=== PATIENT | male | born 1935 | race Caucasian/White ===

== ENCOUNTER → 2016-06-01 | Outpatient (CLI) | payer MEDICARE, BC ==
[~2016-06-01] MED LIST: ALTACE 2.5MG T2.5 MG PO; ALTACE5 MG PO; ASPIRIN 32325 MG/TAB PO; ERYTHROMYCIN; LOVASTATIN20 MG PO; REMERON 15M15 MG/TA1 PO; TRIAZOLAM0.25 MG PO
== END ==
LOC: COL.RAD 08:39
DX: G31.89 Other specified degenerative diseases of nervous system (principal); I67.82 Cerebral ischemia; R41.3 Other amnesia
CPT/HCPCS: Q9967

== ENCOUNTER → 2017-02-26 | Outpatient (CLI) | payer MEDICARE, BC | LOC: COL.RAD 14:22 | DX: K44.9 Diaphragmatic hernia without obstruction or gangrene (principal) ==

== ENCOUNTER 2018-12-12 16:16 | Inpatient (IN) | payer MEDICARE, BC ==
[~2018-12-12] VITALS: Ht 177.8 cm; Wt 75.5 kg
[2018-12-12 16:59] LABS: ARTERIAL BLD GAS O2 SATURATION 92.6 % (92-100); ARTERIAL BLD GAS TCO2 CT 27.5; ARTERIAL BLOOD GAS BASE EXCESS 2.5 (-2-2); ARTERIAL BLOOD GAS HCO3 26.4 meq/L (22-26); ARTERIAL BLOOD GAS PO2 64.3 mmHg (80-100); ARTERIAL BLOOD GAS pH 7.46 (7.35-7.45)
[2018-12-12] MEDS ORDERED: ASPIRIN 81M81 MG/TA2 PO (17:08)
[2018-12-12] MEDS ORDERED: FLOMAX 0.40.4 MG/CAP PO (17:09)
[2018-12-12] MEDS ORDERED: LIPITOR 40MG TA40 MG PO (17:09)
[2018-12-12] MEDS ORDERED: NAMZARIC1 ECC PO (17:10)
[2018-12-12] MEDS ORDERED: NAMENDA XR 28MG PO ×2 (17:10→21:38)
[2018-12-12] MEDS ORDERED: ZOLOFT 25MG25 MG PO (17:11)
[2018-12-12] MEDS ORDERED: ALTACE 2.5MG T2.5 MG PO (17:11)
[2018-12-12] MEDS ORDERED: ASPERCREME1 EACH TP ×2 (17:12→21:40)
[2018-12-12 17:17] LABS: BASO # 0.1 (0.0-0.2); BASO % 0.3 % (0.0-2.0); GRAN # 28.7 (1.4-6.5); GRAN % 90.3 % (42.2-75.2); LYMPH # 1.4 (1.2-3.4); LYMPH % 4.2 % (20.0-51.0); MEAN CELL VOLUME 98 fl (80.0-100.0); MEAN CORPUSCULAR HEMOGLOBIN 31 pg (27.0-31.0); MEAN CORPUSCULAR HGB CONC 32 g/dl (33.0-37.0); MEAN PLATELET VOLUME 11.1 fl (7.4-10.4); MONO # 1.4 (0.1-0.6); MONO % 4.3 % (1.7-9.3); PLATELET COUNT 375 K/mm3 (130-400); RED BLOOD COUNT 3.22 M/mm3 (4.20-5.60)
[2018-12-12 17:24] LABS: HEMATOCRIT 31.4 % (42.0-52.0)
[2018-12-12 17:28] LABS: ALBUMIN 3.9 gm/dL (3.5-5.0); BILIRUBIN,TOTAL 0.9 mg/dL (0.0-1.0); CALCIUM 8.9 mg/dL (8.4-10.2); CREATININE, serum 1.18 (0.66-1.25); POTASSIUM 4.2 mmol/L (3.4-5.0); TOTAL PROTEIN 7.5 gm/dL (6.4-8.2)
[2018-12-12 18:03] LABS: COLLECTION METHOD CLEAN CATCH
[2018-12-12 18:29] LABS: MUCOUS Present /lpf; PH 5 (5-8); SQUAMOUS EPITHELIAL 0-2 /hpf; URINE APPEARANCE Clear; URINE BACTERIA Rare /hpf; URINE BILIRUBIN Negative (NEGATIVE); URINE BLOOD 3+ (NEGATIVE); URINE COLOR Yellow; URINE GLUCOSE Negative (NEGATIVE); URINE KETONE Negative (NEGATIVE); URINE LEUKOCYTE ESTERASE 1+ (NEGATIVE); URINE NITRATE Positive (NEGATIVE); URINE PROTEIN(semi-quant) 1+ (NEGATIVE); URINE RBC >50 /hpf
[2018-12-12 20:26] VITALS: BP 143/57; PULSE 93; TEMP 101.1
--- NOTE | 2018-12-12 21:00 | NUR ---
PT HAS INCISION TO RIGHT HIP THAT IS CLEAN, DRY, AND INTACT, WITH NO S/S OF INFECTION, NO WARMTH, REDNESS, OR PAIN.
[2018-12-12] MEDS ORDERED: ANTIVERT 25MG25 MG PO (21:05)
--- NOTE | 2018-12-12 21:22 | NUR ---
PT ARRIVED FROM [place] AND SON AT SIDE. DID 5 PAGE WITH SON. SON ADVISED THAT FATHER HAD HIP REPLACEMENT ON November, WHEN AT REHAB AT [place], THEY DID PERIOTIC BLOOD TEST AND HIS WBC WAS ELEVATED AND THEN IT DROPPED DOWN. PT CURRENTLY IN [facility] FOR REHAB, BUT LIVES AT HOME WITH . PT HAS SHORT TERM MEMORY PROBLEMS, DEMENTIA. PT USES WALKER TO WALK AND HAS BEEN USING A WHEELCHAIR. NO C/O PAIN OR DISCOMFORT, CALL LIGHT WITHIN REACH. SON DAYANA ADVISED THAT TO CALL HIM FIRST AND SISTER SECOND, BUT SHE LIVES HERE. SO DAYANA LIVES IN [place], WILL RETURN TO ON 12/13/18. CALL LIGHT WITHIN REACH.
[2018-12-12 21:27] LABS: INR 1.2 (0.8-3.0); PROTHROMBIN TIME 13.7 SECONDS (9.7-12.8)
[2018-12-12] MEDS ORDERED: TYLENOL SU650 MG/SUP RC (21:42)
[2018-12-12] MEDS ORDERED: GENTLE LAXATIVE10 MG RC (21:42)
[2018-12-12] MEDS ORDERED: MILK OF MA400 MG/52 PO (21:43)
[2018-12-12] MEDS ORDERED: MIRALAX PA17 GM/Dose PO (21:43)
[2018-12-12] MEDS ORDERED: IMODIUM 2MG CAPS2 MG PO (21:43)
[2018-12-12] MEDS ORDERED: MYLANTA 150 ML150 M1 PO (21:44)
[2018-12-12] MEDS ORDERED: ULTRAM 50MG TAB50 MG PO (21:45)
[2018-12-12] MEDS ORDERED: TYLENOL 325MG325 MG PO (21:45)
[2018-12-12 21:58] LABS: SALICYLATE < 1.0 mg/dL; TROPONIN-I < 0.012 ng/mL (0.000-0.035)
[2018-12-12 23:26] VITALS: BP 125/46; PULSE 81; TEMP 98.9
[2018-12-12 23:27] VITALS: BP 125/46; PULSE 81; TEMP 98.9
[2018-12-13 03:48] VITALS: BP 133/45; PULSE 90; TEMP 98.6
--- NOTE | 2018-12-13 06:01 | NUR ---
PT IN BED WITH HOB AT 15 DEGREE ANGLE, AND PT WEARING CPAP. PT HAS BEEN INCONTINENT OF URINE AND HAS BEEN CHANGED A COUPLE OF TIMES. PT A/O TO SELF. PT IS PLEASANT AND COOPERATIVE. PT DENIES PAIN OR DISCOMFORT. PT NOT ABLE TO MOVE LEFT LEG, BUT PT DID HAVE HIP SURGERY THAT HE IS RECOVERING FROM AND STILL HAS A DRSG OVER LEFT HIP SITE THAT IS C/D/I, AND THERE IS NO S/S OF INFECTION NOTED. PT DID EAT A SNACK BEFORE CPAP PLACED ON HIM. PT REQUESTED STRAWBERRY ICE CREAM. PT RESTING WELL AND DOES EASILY AWAKEN AND GOES BACK TO SLEEP. CALL LIGHT IN REACH AND BED ALARM ON. PT WAS MOVED TO ROOM 313 TO KEEP HIM CLOSE TO NURSES STATION.
[2018-12-13 08:27] VITALS: BP 126/54; PULSE 79; TEMP 98
[2018-12-13 09:13] LABS: MEAN CELL VOLUME 98 fl (80.0-100.0); MEAN CORPUSCULAR HGB CONC 32 g/dl (33.0-37.0); MEAN PLATELET VOLUME 10.6 fl (7.4-10.4); REDCELL DISTRIBUTION WIDTH-CV 13.1 % (11.5-14.5)
[2018-12-13 09:23] LABS: BILIRUBIN,TOTAL 0.7 mg/dL (0.0-1.0); CALCIUM 7.9 mg/dL (8.4-10.2); CREATININE, serum 0.84 (0.66-1.25); TOTAL PROTEIN 6.3 gm/dL (6.4-8.2)
[2018-12-13 09:30] LABS: HEMATOCRIT 26.4 % (42.0-52.0); HEMOGLOBIN 8.4 g/dl (13.5-18.0); MEAN CORPUSCULAR HEMOGLOBIN 31 pg (27.0-31.0); PLATELET COUNT 275 K/mm3 (130-400)
[2018-12-13 10:04] LABS: ANISOCYTOSIS 1+; BAND 4 % (0-10); HYPOCHROMIA 2+; LYMPHOCYTE 6 % (20.0-51.0); NEUTROPHILS 87 % (42.0-75.2); PLATELET ESTIMATE NORMAL (NORMAL); TOXIC GRANULATION PRESENT
--- NOTE | 2018-12-13 10:17 | NUR ---
Pt napping upon entry, easily awakened, no C/O pain at this time, shift assessments complete, left Pt call light in reach, bed in lowesyt position.
[2018-12-13 12:17] VITALS: BP 127/57; PULSE 66; TEMP 97.9
[2018-12-13 16:00] VITALS: BP 131/57; PULSE 81; TEMP 98.4
--- NOTE | 2018-12-13 19:07 | NUR ---
Pt has been resting in his room, spent several hours in the recliner today, has been up and using the bedside commode with assistance with some incontinence, VS have remained stable.
--- NOTE | 2018-12-13 19:18 | NUR ---
Patient assisted to bedside commode x2 assist and assisted to bed. Assessment complete. Lungs clear. Murmur heard with auscultation of heart sounds. Bowels active x4. Pulses strong throughout. No edema noted. Denies pain at this time. Incontinent of urine and bowel. Cares provided. Denies other needs. NS at 150ml/hr infusing into right forearm without complications. Left AC INT without complications. Patient alert but confused on plac, time, and situation. Orientated patient. Bed alarm in place.
--- NOTE | 2018-12-13 19:23 | NUR ---
Gave report to MORGAN Cope.
[2018-12-13 20:02] VITALS: BP 154/62; PULSE 91; PULSE 94; TEMP 100
--- NOTE | 2018-12-13 23:36 | NUR ---
Resting in bed, watching TV. Denies needs. Call light in reach.
[2018-12-14 00:43] VITALS: BP 124/63; PULSE 76; TEMP 99.1
[2018-12-14 05:09] VITALS: BP 144/64; PULSE 77; TEMP 98.8
--- NOTE | 2018-12-14 05:49 | NUR ---
Patient confused at beginning of night. Incontinent throughout night. Cares provided each time. Otherwise uneventful night. Resting in bed this AM watching television.
[2018-12-14 06:20] LABS: BASO % 0.3 % (0.0-2.0); EOS # 0.1 (0.0-0.7); EOS % 0.8 % (0-4.0); GRAN # 9.8 (1.4-6.5); HEMOGLOBIN 10.3 g/dl (13.5-18.0); LYMPH # 0.8 (1.2-3.4); MEAN CELL VOLUME 97 fl (80.0-100.0); MEAN CORPUSCULAR HEMOGLOBIN 31 pg (27.0-31.0); MEAN CORPUSCULAR HGB CONC 32 g/dl (33.0-37.0); MONO # 0.6 (0.1-0.6); MONO % 5.5 % (1.7-9.3); PLATELET COUNT 200 K/mm3 (130-400); RED BLOOD COUNT 3.32 M/mm3 (4.20-5.60); REDCELL DISTRIBUTION WIDTH-CV 13.1 % (11.5-14.5)
[2018-12-14 06:22] LABS: HEMATOCRIT 32.3 % (42.0-52.0)
[2018-12-14 06:34] LABS: ALBUMIN 2.9 gm/dL (3.5-5.0); BILIRUBIN,TOTAL 0.6 mg/dL (0.0-1.0); CALCIUM 8.2 mg/dL (8.4-10.2); CREATININE, serum 0.78 (0.66-1.25); POTASSIUM 3.9 mmol/L (3.4-5.0); TOTAL PROTEIN 6.1 gm/dL (6.4-8.2)
--- NOTE | 2018-12-14 06:36 | NUR ---
Report given to MORGAN Colvin
[2018-12-14 08:30] VITALS: BP 145/63; PULSE 66; TEMP 98.9
--- NOTE | 2018-12-14 08:36 | NUR ---
Pt napping upon entry, easily awakened, no C/O pain at this time, audible wheezing noted, shift assessments complete, left Pt call light in reach, bed in lowest position.
--- NOTE | 2018-12-14 09:14 | NUR ---
Pt napping upon entry, easily awakened, no C/O pain at this time, shift assessments complete, left Pt call light in reach, bed in lowest position, bed alarm on.
[2018-12-14 11:34] VITALS: BP 118/62; PULSE 94; TEMP 98.6
[2018-12-14] MEDS ORDERED: OMNICEF 300MG300 MG PO (12:43)
--- NOTE | 2018-12-14 13:34 | NUR ---
Plan: Plans to return to [facility] for SNF. Assess: SW met with patient in room, , and DTR Lanette Haque . Patient reports DPOA is Ketty , Daughter Lanette,a nd Son .Patient indicated that they recieve medications from [facility], pcp is Dr. Nunez. Patient reports that use of walker 17/12. Patient indicated that his family is his care support at home. Action: SW facilitated transfer to [facility]. Transport set at 02:30 pm. Faxed DC to [facility]. Nothing follows.
[2018-12-14 13:52] VITALS: BP 118/62; PULSE 94; TEMP 98.6
--- NOTE | 2018-12-14 15:00 | NUR ---
Pt picked up by [facility].
== END 2018-12-14 15:00 | DRG 872 ==
LOC: COL.ER 16:16 → MEDICAL 18:26
PROVIDERS: Family Medicine; Nurse Practitioner Family; ADMIT Student in an Organized Health Care Education/Training Program
DX: A41.9 Sepsis, unspecified organism (principal); E87.2 Acidosis; D68.51 Activated protein C resistance; N39.0 Urinary tract infection, site not specified; R65.20 Severe sepsis without septic shock; E78.5 Hyperlipidemia, unspecified; F03.90 Unspecified dementia, unspecified severity, without behavioral disturbance, psychotic disturbance, mood disturbance, and anxiety; G47.33 Obstructive sleep apnea (adult) (pediatric); I10 Essential (primary) hypertension; N40.0 Benign prostatic hyperplasia without lower urinary tract symptoms; R09.02 Hypoxemia; Z96.642 Presence of left artificial hip joint; Z86.73 Personal history of transient ischemic attack (TIA), and cerebral infarction without residual deficits; Z79.82 Long term (current) use of aspirin
CPT/HCPCS: 99222-AI; 99239; A4216; J0692; J1650; J7030

== ENCOUNTER 2021-06-04 15:52 | Inpatient (IN) | payer MEDICARE, BC ==
[~2021-06-04] VITALS: Ht 177.8 cm; Wt 78.3 kg
[~2021-06-04 15:52] MED LIST changes: +ANTIVERT 25MG25 MG PO; +ASPERCREME1 EACH TP; +ASPIRIN 81M81 MG/TA2 PO; +CHILDREN'S5 MG/5 M3 PO; +CLARITIN LIQUI-10 MG PO; +FLOMAX 0.40.4 MG/CAP PO; +GENTLE LAXATIVE10 MG RC; +IMODIUM 2MG CAPS2 MG PO; +LIPITOR 40MG TA40 MG PO; +MILK OF MA400 MG/52 PO; +MIRALAX PA17 GM/Dose PO; +MYLANTA 150 ML150 M1 PO; +NAMENDA XR 28MG PO; +NAMZARIC1 ECC PO; +OMNICEF 300MG300 MG PO; +TYLENOL 325MG325 MG PO; +TYLENOL SU650 MG/SUP RC; +ULTRAM 50MG TAB50 MG PO; +ZOLOFT 25MG25 MG PO
[2021-06-04 17:11] LABS: COLLECTION METHOD CATHETER
[2021-06-04 17:13] LABS: BASO # 0.1 K/mm3 (0.0-0.2); BASO % 0.4 % (0.0-2.0); EOS # 0.1 K/mm3 (0.0-0.7); EOS % 0.5 % (0.0-4.0); GRAN # 16.3 K/mm3 (1.4-6.5); GRAN % 82.5 % (42.2-75.2); HEMOGLOBIN 11.7 g/dl (13.5-18.0); LYMPH # 1.8 K/mm3 (1.2-3.4); MEAN CELL VOLUME 96 fl (80.0-100.0); MEAN CORPUSCULAR HEMOGLOBIN 31 pg (27-31); MEAN CORPUSCULAR HGB CONC 32 g/dl (33.0-37.0); MEAN PLATELET VOLUME 11.9 fl (7.4-10.4); MONO # 1.4 K/mm3 (0.1-0.6); MONO % 7.1 % (1.7-9.3); PLATELET COUNT 256 K/mm3 (130-400); RED BLOOD COUNT 3.82 M/mm3 (4.20-5.60); REDCELL DISTRIBUTION WIDTH-CV 13.2 % (11.5-14.5)
[2021-06-04 17:16] LABS: HEMATOCRIT 36.6 % (42.0-52.0)
[2021-06-04 17:20] LABS: PH 5 (5-8); SQUAMOUS EPITHELIAL None Seen /hpf (0-10); URINE APPEARANCE Hazy (CLEAR/HAZY); URINE BACTERIA Many /hpf (NONE SEEN); URINE BILIRUBIN Negative (NEGATIVE); URINE BLOOD 2+ (NEGATIVE); URINE COLOR Yellow (YELLOW); URINE GLUCOSE Negative (NEGATIVE); URINE KETONE Negative (NEGATIVE); URINE LEUKOCYTE ESTERASE Negative (NEGATIVE); URINE NITRATE Positive (NEGATIVE); URINE PROTEIN(semi-quant) 2+ (NEGATIVE); URINE RBC 0-2 /hpf (0-2)
[2021-06-04 17:32] LABS: ALBUMIN 3.2 gm/dL (3.4-4.8); BILIRUBIN,TOTAL 0.7 mg/dL (0.2-1.2); CALCIUM 9.5 mg/dL (8.4-10.2); CREATININE, serum 1.13 mg/dL (0.72-1.25); POTASSIUM 3.7 mmol/L (3.5-4.5); TOTAL PROTEIN 7.7 gm/dL (6.2-8.1)
[2021-06-04] MEDS ORDERED: TYLENOL SU650 MG/SUP RC (18:47)
[2021-06-04] MEDS ORDERED: DULCOLAX S10 MG/SUPP RC (18:47)
[2021-06-04] MEDS ORDERED: DULCOLAX STOOL100 MG PO (18:48)
[2021-06-04] MEDS ORDERED: IMODIUM 2MG CAPS2 MG PO (18:48)
[2021-06-04] MEDS ORDERED: FLONASEALLERGY NS (18:48)
[2021-06-04] MEDS ORDERED: MYLANTA 150 ML150 M1 PO (18:49)
[2021-06-04] MEDS ORDERED: GOOD NEIGH1200 MG/15 (18:49)
[2021-06-04] MEDS ORDERED: NAMZARIC1 ECC PO ×2 (18:50→19:24)
[2021-06-04] MEDS ORDERED: ULTRAM 50MG TAB50 MG PO (19:19)
[2021-06-04] MEDS ORDERED: TYLENOL 500MG500 MG PO (19:20)
[2021-06-04 19:59] VITALS: BP 116/47; PULSE 86; TEMP 99.3
[2021-06-04 20:00] VITALS: BP 181/72; PULSE 69; TEMP 98.8
[2021-06-05 00:30] VITALS: BP 171/78; PULSE 69; PULSE 70; TEMP 97.9; TEMP 98
[2021-06-05 04:27] VITALS: BP 170/69; PULSE 64; TEMP 97.6
[2021-06-05 07:13] LABS: BASO # 0.1 K/mm3 (0.0-0.2); BASO % 0.5 % (0.0-2.0); EOS # 0.2 K/mm3 (0.0-0.7); EOS % 1.2 % (0.0-4.0); GRAN # 13.7 K/mm3 (1.4-6.5); GRAN % 83.7 % (42.2-75.2); HEMOGLOBIN 10.3 g/dl (13.5-18.0); LYMPH # 1.4 K/mm3 (1.2-3.4); LYMPH % 8.3 % (20.0-51.0); MEAN CELL VOLUME 96 fl (80.0-100.0); MEAN CORPUSCULAR HEMOGLOBIN 30 pg (27-31); MEAN CORPUSCULAR HGB CONC 32 g/dl (33.0-37.0); MEAN PLATELET VOLUME 12.5 fl (7.4-10.4); MONO # 0.9 K/mm3 (0.1-0.6); MONO % 5.8 % (1.7-9.3); PLATELET COUNT 223 K/mm3 (130-400); RED BLOOD COUNT 3.41 M/mm3 (4.20-5.60); REDCELL DISTRIBUTION WIDTH-CV 13.2 % (11.5-14.5)
[2021-06-05 07:14] LABS: HEMATOCRIT 32.7 % (42.0-52.0)
--- NOTE | 2021-06-05 07:29 | NUR ---
PT ARRIVED TO MEDICAL UNIT AROUND 2100HRS TO RM308. PT HAS DEMENTIA AND IS MOSTLY NONVERBAL. PT A&O TO SELF. VSS, O2 RA. ADMISSIONS ASSESSMENT COMPLETE I CAN, DUE TO PT'S DEMENTIA AND VERBAL ABILITIES. I DID SPEAK WITH PT'S SON AND THE NIGHT RN AT [facility] TO GET WHAT ANSWERS I COULD FROM THEM. PT SEEMED TO BE COMFORTABLE. PT UNABLE TO ANSWER QUESTIONS CONCERNING N/V, SOB, CHEST PAIN, ETC. ATTEMPTED TO ORIENT PT TO ROOM AND CALL LIGHT. I AM UNABLE TO TELL IF HE UNDERSTANDS. WILL CONTINUE TO LOOK IN ON PT. CALL LIGHT WITHIN REACH
[2021-06-05 07:31] LABS: CALCIUM 8.5 mg/dL (8.4-10.2); CREATININE, serum 0.86 mg/dL (0.72-1.25); POTASSIUM 3.4 mmol/L (3.5-4.5)
[2021-06-05 07:39] VITALS: BP 126/89; PULSE 65; TEMP 97.8
--- NOTE | 2021-06-05 10:05 | NUR ---
The patient has dementia. AWA contacted the patient's , Ketty (ph#[phone]), to discuss discharge plan. Ketty resides at [facility]. The patient resides at [facility] in [facility]. His PCP is Dr. Jovany Nunez. The patient does not have a DPOA-HC in EMR, but Ketty reports that the patient probably does have a DPOA-HC. The patient's son, Adriel (ph#[phone]), is also listed as a person to contact. Ketty states that Adriel lives in [place] and that the plan is for the patient to return back to [facility] upon discharge. AWA contacted and faxed updates to Raisa at [facility] and requested a copy of the patient's DPOA-HC. AAW also attempted to contact Tram with Dr. Nunez's office to inquire if they have a copy. AWA left her a voicemail. SW to continue to follow. *Discharge plan: [facility]*
--- NOTE | 2021-06-05 10:30 | NUR ---
SW received the patient's DPOA-HC, via fax. SW placed the document in the patient's chart. The patient's DPOA-HC is his . The alternates are Franco Shelton and Lanette Haque.
[2021-06-05 11:23] VITALS: BP 176/73; PULSE 64; TEMP 97.8
[2021-06-05 12:42] LABS: CALCIUM 8.5 mg/dL (8.4-10.2); CREATININE, serum 0.85 mg/dL (0.72-1.25); MAGNESIUM 2.3 mg/dL (1.6-2.6); POTASSIUM 3.3 mmol/L (3.5-4.5)
[2021-06-05 16:36] VITALS: BP 164/64; PULSE 62; TEMP 98.4
--- NOTE | 2021-06-05 18:00 | NUR ---
Patient had an ok day. Scheduled medications given. Shift assessment performed. BP elevated, medication administered. All other vital signs stable. Patient Alert but not oriented. Mechanical soft diet initiated by ST. No s/s of pain or discomfort at this time. Call light in reach. Fall percautions in place.
[2021-06-05 20:38] VITALS: BP 155/66; PULSE 70
[2021-06-05 22:33] LABS: CALCIUM 8.3 mg/dL (8.4-10.2); CREATININE, serum 0.84 mg/dL (0.72-1.25); POTASSIUM 3.7 mmol/L (3.5-4.5)
[2021-06-06 04:05] VITALS: BP 147/69; PULSE 70; TEMP 99.5
[2021-06-06 08:03] LABS: BASO # 0.1 K/mm3 (0.0-0.2); BASO % 0.5 % (0.0-2.0); EOS # 0.3 K/mm3 (0.0-0.7); EOS % 2.2 % (0.0-4.0); GRAN # 9.8 K/mm3 (1.4-6.5); GRAN % 73.9 % (42.2-75.2); HEMOGLOBIN 10.1 g/dl (13.5-18.0); LYMPH # 2.3 K/mm3 (1.2-3.4); LYMPH % 17.5 % (20.0-51.0); MEAN CELL VOLUME 100 fl (80.0-100.0); MEAN CORPUSCULAR HEMOGLOBIN 31 pg (27-31); MEAN CORPUSCULAR HGB CONC 31 g/dl (33.0-37.0); MONO # 0.7 K/mm3 (0.1-0.6); MONO % 5.4 % (1.7-9.3); PLATELET COUNT 229 K/mm3 (130-400); REDCELL DISTRIBUTION WIDTH-CV 13.2 % (11.5-14.5)
[2021-06-06 08:09] LABS: HEMATOCRIT 32.9 % (42.0-52.0)
[2021-06-06 08:16] LABS: CALCIUM 8.4 mg/dL (8.4-10.2); CREATININE, serum 0.85 mg/dL (0.72-1.25); POTASSIUM 3.4 mmol/L (3.5-4.5)
[2021-06-06 08:30] VITALS: BP 146/81; PULSE 78; TEMP 98.8
--- NOTE | 2021-06-06 08:45 | NUR ---
ASSESSMENT COMPLETE FOR THIS SHIFT. PT RESTING IN BED WATCHING TV. PT'S DAUGHTER CALL AND TALKED TO PT. ALTHOUGH, PT IS MOSTLY NONVERBAL, PT (I BELIEVE OUT OF HABIT), SAID TO HIS DAUGHTER, "HOW'S MY FAVORITE DAUGHTER!" AT THE BEGINNING OF THE CALL AND "I LOVE YOU, TOO!" AT THE END OF THE CALL. HE DIDN'T REALLY SAY ANYTHING IN THE MIDDLE OF THE CALL. I WILL CONTINUE TO CHECK OF PT OFTEN TO ENSURE HIS NEEDS ARE MET. CALL LIGHT WITHIN REACH.
[2021-06-06 12:33] LABS: CALCIUM 8.4 mg/dL (8.4-10.2); CREATININE, serum 0.95 mg/dL (0.72-1.25); POTASSIUM 3.3 mmol/L (3.5-4.5)
[2021-06-06 13:10] VITALS: BP 125/68; PULSE 74; TEMP 98.2
--- NOTE | 2021-06-06 14:47 | NUR ---
AWA faxed updates to Raisa at [facility].
[2021-06-06 15:38] VITALS: BP 178/48; PULSE 70; TEMP 98.6
--- NOTE | 2021-06-06 18:00 | NUR ---
Patient has had an ok day. Scheduled medications given. Shift assessment performed. Patient Alert, but not oriented. PO fluid intake encouraged. Hamm catheter DC'd, balloon intact, dorothy care performed. Patient's family and primary care nurse updated. BP elevated on last check. Ruperto Luna notified, BP medication orders placed. Patient is currently resting in bed. No s/s of pain, discomfort, or further need at this time. Call light in reach. Fall percautions in place.
[2021-06-06 20:59] VITALS: BP 129/57; PULSE 76; TEMP 99
--- NOTE | 2021-06-06 21:00 | NUR ---
Patient is sitting in bed, alert but not oriented. Has been presenting HTN. PRN provided. Assessment completed, medications provided. Able to take medications PO with thick liquids. No further needs at this time. Call light within reach. Bed alarm on.
[2021-06-06 23:47] VITALS: BP 161/74; PULSE 75; TEMP 98.9
[2021-06-07 04:10] VITALS: BP 147/70; PULSE 75; TEMP 99.1
--- NOTE | 2021-06-07 06:43 | NUR ---
PT has had a calm night. Episodes of HBP. One dose of hydralazine given. All needs met. Report will be given to joe MORA.
[2021-06-07 07:45] LABS: BASO # 0.1 K/mm3 (0.0-0.2); BASO % 0.5 % (0.0-2.0); EOS # 0.3 K/mm3 (0.0-0.7); EOS % 2.9 % (0.0-4.0); GRAN # 8.4 K/mm3 (1.4-6.5); GRAN % 70.4 % (42.2-75.2); HEMOGLOBIN 10.2 g/dl (13.5-18.0); LYMPH # 2.4 K/mm3 (1.2-3.4); LYMPH % 20.4 % (20.0-51.0); MEAN CELL VOLUME 97 fl (80.0-100.0); MEAN CORPUSCULAR HEMOGLOBIN 30 pg (27-31); MEAN CORPUSCULAR HGB CONC 31 g/dl (33.0-37.0); MEAN PLATELET VOLUME 12.8 fl (7.4-10.4); MONO # 0.6 K/mm3 (0.1-0.6); MONO % 5.2 % (1.7-9.3); PLATELET COUNT 245 K/mm3 (130-400); RED BLOOD COUNT 3.38 M/mm3 (4.20-5.60)
[2021-06-07 07:47] LABS: HEMATOCRIT 32.8 % (42.0-52.0)
[2021-06-07 07:58] LABS: CALCIUM 8.5 mg/dL (8.4-10.2); CREATININE, serum 0.87 mg/dL (0.72-1.25); POTASSIUM 3.4 mmol/L (3.5-4.5)
[2021-06-07 08:18] VITALS: BP 147/60; PULSE 69; TEMP 98.4
--- NOTE | 2021-06-07 09:00 | NUR ---
Shift assessment complete. Pt alert, not oriented. Minimal verbal response. Coughing with sips of water. Hospitalist notified and re-evaluation by ST ordered. Lungs CTA. Heart RRR. Bed alarm on and call light in reach.
--- NOTE | 2021-06-07 11:50 | NUR ---
The patient may be able to discharge tomorrow, 06/07. AWA notified and faxed updates to Raisa at [facility]. AWA contacted and updated the patient's , Ketty. Pat is in agreement to the plan. *Discharge plan: [facility]*
[2021-06-07 13:14] VITALS: BP 141/66; PULSE 76; TEMP 98.4
[2021-06-07 17:22] VITALS: BP 127/60; PULSE 68; TEMP 98
[2021-06-07 20:11] VITALS: BP 136/96; PULSE 66; TEMP 98.4
--- NOTE | 2021-06-07 20:44 | NUR ---
Patient is resting in bed, alert but not oriented. He answered with his hands that he is doing ok. It is difficult to give the medications. He closes his mouth and refuses to take water. In the end he took them. Assessment completed. No further needs at this time. Call light within reach, bed alarm on.
[2021-06-08 00:19] VITALS: BP 144/70; PULSE 68; TEMP 98.3
[2021-06-08 04:38] VITALS: BP 153/70; PULSE 61; TEMP 98
[2021-06-08 06:10] LABS: BASO # 0.1 K/mm3 (0.0-0.2); BASO % 0.6 % (0.0-2.0); EOS # 0.4 K/mm3 (0.0-0.7); EOS % 2.9 % (0.0-4.0); GRAN # 8.6 K/mm3 (1.4-6.5); GRAN % 71.5 % (42.2-75.2); HEMOGLOBIN 10.5 g/dl (13.5-18.0); LYMPH # 2.3 K/mm3 (1.2-3.4); LYMPH % 18.9 % (20.0-51.0); MEAN CELL VOLUME 95 fl (80.0-100.0); MEAN CORPUSCULAR HEMOGLOBIN 31 pg (27-31); MEAN CORPUSCULAR HGB CONC 33 g/dl (33.0-37.0); MEAN PLATELET VOLUME 12.6 fl (7.4-10.4); MONO # 0.7 K/mm3 (0.1-0.6); MONO % 5.4 % (1.7-9.3); PLATELET COUNT 252 K/mm3 (130-400)
[2021-06-08 06:15] LABS: HEMATOCRIT 32.3 % (42.0-52.0)
--- NOTE | 2021-06-08 06:15 | NUR ---
Patient has had a calm night. He has had hypertension but not higher than 170. Pt denies to drink water. Report will be given to day RN.
[2021-06-08 06:26] LABS: CALCIUM 8.5 mg/dL (8.4-10.2); CREATININE, serum 0.85 mg/dL (0.72-1.25); POTASSIUM 3.3 mmol/L (3.5-4.5)
[2021-06-08 07:22] VITALS: BP 136/64; PULSE 59; TEMP 97.7
[2021-06-08] MEDS ORDERED: ALTACE 10MG TAB10 MG PO (08:30)
--- NOTE | 2021-06-08 09:55 | NUR ---
Call made to patient's , Pat #[phone]. She is aware of the patient's dementia and that he is nearing the end-of-life in his disease. She would like him to return back to [facility] and is open to discussing hospice services with them. She also requested that I call her son and discuss things with him, including her decision about hospice. Call made to Adriel, patient's son #[phone], left [facility]. Notified primary RN and SW of discussion with .
--- NOTE | 2021-06-08 10:51 | NUR ---
Had long discussion with patient's son Adriel. He is a little hesitant about the word/designation of "hospice" but understand that his dad is progressing in his disease. Adriel plans to have discussions with his family and [facility] about "hospice" and his dad's care moving forward. He is also on his way here to visit and I will touch base with him when he arrives.
--- NOTE | 2021-06-08 10:56 | NUR ---
Patient is alert but not oriented, has dementia. This RN assiste the patient with breakfast. Patient takes small bites and small sips, follows ques to swallow. Talks very little, q2h turn schedule.
[2021-06-08] MEDS ORDERED: SEPTRA DS 8001 TAB PO (11:19)
[2021-06-08] MEDS ORDERED: K-DUR20 MEQ PO (11:22)
[2021-06-08 12:40] VITALS: BP 152/68; PULSE 60; TEMP 96.9
--- NOTE | 2021-06-08 13:38 | NUR ---
A palliative care consult was ordered. Ghada, Palliative Care RN, notified AWA that the patient's family is considering comfort care, but they would prefer for the patient to return back to his same room at [facility] for now and they will continue hospice conversations with [facility]. AWA notified Raisa at [facility]. The patient is to discharge today, 06/08, back to [facility] for long-term care. Transportation was scheduled at 1430, via [facility]. AWA informed the patient's RN and his , Ketty, of the time. AWA also presented and read the IM form outloud to the patient's , over the phone. The patient's verbalized understanding and gave AWA approval to sign the form on her behalf. No additional needs at this time.
--- NOTE | 2021-06-08 15:00 | NUR ---
Patient discharged back to [facility]. Son was present at the time of discharge. IV discontinued by this RN. Patient was changed before leaving, dorothy-care completed.
== END 2021-06-08 15:01 | DRG 689 ==
LOC: COL.ER 15:52 → MEDICAL 18:09
PROVIDERS: Physician Assistant; Student in an Organized Health Care Education/Training Program; ADMIT Internal Medicine
DX: N39.0 Urinary tract infection, site not specified (principal); J18.9 Pneumonia, unspecified organism; E87.0 Hyperosmolality and hypernatremia; D68.51 Activated protein C resistance; R65.10 Systemic inflammatory response syndrome (SIRS) of non-infectious origin without acute organ dysfunction; I10 Essential (primary) hypertension; G47.33 Obstructive sleep apnea (adult) (pediatric); Z20.822 Contact with and (suspected) exposure to COVID-19; Z66 Do not resuscitate; D64.9 Anemia, unspecified; N40.0 Benign prostatic hyperplasia without lower urinary tract symptoms; B96.89 Other specified bacterial agents as the cause of diseases classified elsewhere; E87.6 Hypokalemia; F03.90 Unspecified dementia, unspecified severity, without behavioral disturbance, psychotic disturbance, mood disturbance, and anxiety; D72.829 Elevated white blood cell count, unspecified; F32.A Depression, unspecified; E78.5 Hyperlipidemia, unspecified; Z79.82 Long term (current) use of aspirin; Z96.642 Presence of left artificial hip joint; Z86.73 Personal history of transient ischemic attack (TIA), and cerebral infarction without residual deficits; Z23 Encounter for immunization
CPT/HCPCS: 99223-AI; 99232-AI; 99233-AI; 99239; J0360; J0456; J0696; J1644; J7030; J7050; J7070